=== PATIENT | male | born 1950 | race Caucasian/White ===

== ENCOUNTER 2025-09-03 17:45 | Outpatient (REF) | payer BC, SELFPAY ==
[2025-09-03 18:25] LABS: HCT 44.9 % (40.0-50.0); HGB 15.1 g/dL (13.5-17.5); MCH 30.6 pg (27.0-33.0); MCHC 33.6 % (32.0-36.0); MCV 91 fL (80-95); MPV 10.8 fL (8.0-11.0); Platelet Count 190 10^3/uL (130-400); RBC 4.94 10^6/uL (4.36-5.78); RDW 12.0 % (11.8-14.1); RDW-SD 39.9 fL; WBC 5.25 10^3/uL (4.4-10.8)
[2025-09-03 18:36] LABS: ALT 36 U/L (16-63); AST 33 U/L (15-37); Albumin 3.6 g/dL (3.4-5.0); Alkaline Phosphatase 93 U/L (46-116); Anion Gap 5.7 mmol/L (3-11); BUN 26 mg/dL (7-18); Bilirubin, Total 0.6 mg/dL (0.2-1.0); CO2 31.3 mmol/L (21.0-32.0); Calcium 9.0 mg/dL (8.5-10.1); Chloride 102 mmol/L (98-107); Cholesterol 283 mg/dL (<200); Glucose 95 mg/dL (74-106); HDL Cholesterol 34 mg/dL (>or=40); Potassium 4.1 mmol/L (3.5-5.1); Sodium 139 mmol/L (136-145); Total Protein 7.3 g/dL (6.4-8.2)
[2025-09-03 19:08] LABS: Hemoglobin A1C 5.4 % (<5.7)
[2025-09-04 17:51] LABS: PSA, Screening 1.2 ng/mL (<=6.5)
== END 2025-09-03 17:46 | disposition home or self-care (01) ==
LOC: NCHCN 17:45
PROVIDERS: Visit Provider Physician Assistant
DX: E78.00 Pure hypercholesterolemia, unspecified (principal); Z13.1 Encounter for screening for diabetes mellitus; Z13.6 Encounter for screening for cardiovascular disorders; Z12.5 Encounter for screening for malignant neoplasm of prostate
CPT/HCPCS: 80053; 80061; 84153; 85027; 83036